=== PATIENT | male | born 1995 | race Caucasian/White ===

== ENCOUNTER 2016-10-24 21:25 | Emergency (ER) | payer MEDICAID, OTHER ==
[~2016-10-24] VITALS: Ht 188 cm; Wt 75.0 kg
[2016-10-24 21:35] VITALS: Ht 188 cm; Wt 75.0 kg
[2016-10-24] MEDS ORDERED: IBUPROFEN 600 MG TAB PO ONE (22:00)
[2016-10-24] MEDS ORDERED: OXYCODONE/ACETAMINOPHEN (5/325) TAB PO ONE (22:00)
[2016-10-24] MEDS ORDERED: LEVO150T67 PO (22:43)
[2016-10-24] MEDS ORDERED: FENTAnyl 50 MCG/ML VIAL IV ONE (23:30)
[2016-10-24] MEDS ORDERED: PROPOFOL 100 ML IV ONE (23:30)
--- NOTE | 2016-10-24 23:39 | RADRPT ---
PROCEDURE: Left knee series CLINICAL INDICATION: Pain status post fall TECHNIQUE: AP, tunnel, and cross-table lateral views. views of the right knee COMPARISON: None available FINDINGS: On the cross-table lateral view a lipohemarthrosis is present indicative of an intra-articular fract ure . A subtle fracture is noted of the lateral tibial plateau best visualized on the oblique view. Medial dislocation of the left distal femur is noted with approximately 1.8 cm offset of the medial femoral condyle with the medial tibial condyle. Sclerosis is noted of the lateral femoral condyle and tibial condyle. No radiodense foreign bodies are present IMPRESSION: 1. Acute fracture and medial dislocation of the left distal femoral condyles with respect to the ti bial condyles. 2. Moderate lipohemarthrosis. A call report was made to Joseph Lockhart at 10/24/2016 11:37:08 PM following the completion of the examination by the undersigned. RPTAT: HDC .Latrice Hough MD, MD Date Time Electronically viewed and signed by .Latrice Hough MD, on 10/24/2016 23:38 .C/
[2016-10-24] MEDS ORDERED: IBUP-1542 PO (23:49)
--- NOTE | 2016-10-25 00:37 | RADRPT ---
PROCEDURE: knee x-ray CLINICAL INDICATION: New TECHNIQUE: AP, lateral and oblique views of the left knee were obtained. COMPARISON: 727.17 FINDINGS: The previously described lateral tibial plateau fractures poorly visualized on the current study pat ient limitation within the brace. There is post reduction anatomic alignment of the distal femur an d tibia. The medial, lateral, as well as patellofemoral knee joint compartments are well maintained. Persistent joint effusion and possible or hemarthrosis. MRI is recommended to assess for internal d erangement. No soft tissue or osseous abnormality. IMPRESSION: 1. The previously described lateral tibial plateau fractures poorly visualized on the current study due to positioning. Otherwise, successful reduction of the medial femorotibial dislocation. MRI i s recommended for assessment of internal derangement. 2. Stable joint effusion. 3. No soft tissue abnormality. RPTAT:AAJJ Physician Octavio Date Time Electronically viewed and signed by Physician Octavio on 10/25/2016 00:36 ADI/
--- NOTE | 2016-10-25 03:39 | ERD ---
ER Documentation Chief Complaint Date/Time DATE: 10/25/16 TIME: 03:31 Chief Complaint L knee pain s/p soccer injury 30 mins prior HPI 21-year-old man brought in by EMS for left knee injury after playing soccer. Patient describes a plant and twist mechanism to the left lower extremity while kicking the ball with his right leg. After that episode he had difficulty ambulating and pain to the left knee. He denies ankle or hip pain, no paresis or paresthesias, no chest pain or shortness of breath, no headache or blurry vision. Patient denies head or neck trauma. Patient was transported here by EMS without further complications. ROS All systems reviewed and are negative except as per history of present illness. Medications Home Meds Active Scripts Ibuprofen* (Ibuprofen*) 600 Mg Tablet, 600 MG PO Q8 for PAIN AND/OR INFLAMMATION , #30 TAB Prov:HAYLEY MARTIN MD 10/24/16 Reported Medications Levothyroxine Sodium* (Levothyroxine Sodium*) 150 Mcg Tablet, 150 MCG PO BEFORE BREAKFAST, #30 TAB 10/24/16 Allergies Allergies: Coded Allergies: No Known Allergy (Unverified , 10/24/16) PMhx/Soc Hypothyroidism Medical and Surgical Hx: pt denies Surgical Hx History of Surgery: No Anesthesia Reaction: No Hx Neurological Disorder: No Hx Respiratory Disorders: No Hx Cardiac Disorders: No Hx Psychiatric Problems: No Hx Miscellaneous Medical Probl: Yes (hypothyroidism) Hx Alcohol Use: No Hx Substance Use: No Hx Tobacco Use: No Smoking Status: Never smoker FmHx Family History: No diabetes Physical Exam Vitals Vital Signs Date Time Temp Pulse Resp B/P Pulse Ox O2 Delivery O2 Flow Rate FiO2 10/24/16 21:35 98.2 88 17 128/74 100 Physical Exam GENERAL: Well-developed, well-nourished, in moderate discomfort, afebrile HEENT: Moist mucous membranes, pink conjunctiva, no cervical spine tenderness or step-off deformities, no goiter, no jaundice or icterus, extraocular movements intact without pain. No submandibular induration, and no pharyngeal erythema NEURO: Alert and oriented 3, cranial nerves II through XII intact bilaterally, pupils equal round reactive to light, no focal deficits or facial asymmetry, sensation intact distally Strength 5/5 in upper and lower extremities bilaterally CARDIAC: Regular rate and rhythm, no murmurs rubs or gallops LUNGS: Clear bilaterally no wheezing crackles or stridor ABDOMEN: Soft nontender, no guarding, no rigidity, no rebound, no psoas sign no obturator sign. Normoactive bowel sounds SKIN: Warm and dry to touch, no abrasions, contusions, or hematomas, no lacerations, no ecchymosis, no target lesions, and without ulcers EXTREMITIES: Soft tissue deformity to the left anterior knee, calves bilaterally symmetrical, distal pulses equal bilateral PSYCH: Normal affect without agitation or irritability Results 24 hrs Current Medications Medications (Trade) Dose Ordered Sig/Dena Route PRN Reason Start Time Stop Time Status Last Admin Dose Admin Ibuprofen (Motrin) 600 mg ONCE ONCE PO 10/24/16 22:00 10/24/16 22:01 DC 10/24/16 22:09 Oxycodone/ Acetaminophen 1 tab 1 tab ONCE ONCE PO 10/24/16 22:00 10/24/16 22:01 DC 10/24/16 22:09 Propofol (Diprivan) 100 ml @ 0 mls/hr TITRATE ONCE IV 10/24/16 23:30 10/24/16 23:32 DC Fentanyl (Sublimaze) 100 mcg ONCE ONCE IV 10/24/16 23:30 10/24/16 23:32 DC Procedures/MDM I administered ibuprofen 600 mg p.o. and Percocet 1 tablet p.o. X-ray left knee 3V Interpreted by me: Bones: No fracture Joints: Positive tibiofemoral dislocation Foreign body: None Manual reduction of the left knee was performed by me at the bedside. Patient tolerated procedure well and did not require further analgesics or sedatives. After reduction patient had full range of motion actively and passively of the left knee. X-ray left knee 3V Interpreted by me: Bones: No fracture Joints: No dislocation Foreign body: None Radiologist called me and stated she suspected a small tibial plateau fracture. Information about this fracture was provided to the patient. Splinting to the left lower extremity was performed using the knee immobilizer. It was secured circumferentially around the left lower extremity, instructions on how to maintain it were provided to the patient. Splint Assessment: Neurovascularly intact post splint placement with good fit. Patient feels much better at this time, and vital signs are normal, symptoms have improved. I did give strict instructions to return to the ED if symptoms continue or worsen, patient will otherwise follow-up with primary care physician. Patient understood instructions and agreed to plan. Disclaimer: Inadvertent spelling and grammatical errors are likely due to EHR/ dictation software use and do not reflect on the overall quality of patient care. Also, please note that the electronic time recorded on this note does not necessarily reflect the actual time of the patient encounter. Departure Diagnosis: Primary Impression: Knee dislocation Encounter type: initial encounter Laterality: left Qualified Code: S83.105A - Knee dislocation, left, initial encounter Additional Impression: Tibia fracture Encounter type: initial encounter Tibia location: proximal Fracture type: closed Fracture morphology: other fracture Laterality: left Qualified Code : S82.192A - Other closed fracture of proximal end of left tibia, initial encounter Condition: Good Patient Instructions: Fracture, Knee HAYLEY MARTIN MD Oct 25, 2016 03:39
== END 2016-10-25 00:52 | disposition home or self-care (01) ==
LOC: E/R 21:25
DX: S83.105A Unspecified dislocation of left knee, initial encounter (principal); S82.192A Other fracture of upper end of left tibia, initial encounter for closed fracture; E03.9 Hypothyroidism, unspecified; W21.02XA Struck by soccer ball, initial encounter; Y92.9 Unspecified place or not applicable
CPT/HCPCS: 73562; Z7610; J3010